=== PATIENT | female | born 1995 | race Caucasian/White ===

== ENCOUNTER 2016-10-25 21:06 | Emergency (ER) | payer OTHER ==
[2016-10-25] MEDS ORDERED: SODIUM CHLORIDE 0.9% 1000ML 1,000 ML ONE (21:15)
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
--- NOTE | 2016-10-25 21:38 | RAD ---
EXAM DESCRIPTION: Ankle,Right 3 Views CLINICAL HISTORY: pain COMPARISON: None FINDINGS: AP, lateral and oblique views of the right ankle were submitted. There is no discrete acute fracture or dislocation. The ankle mortise is intact in these non stress views. Bone mineralization is within normal limits. There is no radiopaque foreign body material IMPRESSION: No acute fracture or dislocation. Electronically signed by: Sami Gabriel MD 10/25/2016 9:37 PM CDT
[2016-10-25 21:45] VITALS: TEMP 98.6; O2SAT 98
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
[2016-10-25] MEDS: NEOMYCIN-BACITRACIN-POLYMYXIN 0.9 GM UD TOP ONE (22:00)
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
[2016-10-25] MEDS ORDERED: CHLORHEXIDINE GLUCONATE 4 % 15 ML UD TOP ONE (22:50)
[2016-10-25] MEDS ORDERED: NEOMYCIN-BACITRACIN-POLYMYXIN 0.9 GM UD TOP ONE ×2 (22:55→22:59)
[2016-10-25] MEDS ORDERED: LIDOCAINE 1% W/ EPINEPHRINE 20 ML VIAL INJ ONE (23:27)
[2016-10-26] MEDS ORDERED: ceFAZolin SODIUM 1 GM in SODIUM CHL 0.9% 50ML MIN-BAG+ 50 ML IVPB ONE ×2
[2016-10-26] MEDS ORDERED: ceFAZolin SODIUM 1 GM VIAL ONE (00:15)
[2016-10-26] MEDS ORDERED: ceFAZolin SODIUM 1 GM VIAL IM ONE (00:16)
[2016-10-26 01:19] VITALS: BP 134/86
[2016-10-26] MEDS ORDERED: NEOMYCIN-BACITRACIN-POLYMYXIN 0.9 GM UD TOP ONE (04:20)
[2016-10-26] MEDS ORDERED: CHLORHEXIDINE GLUCONATE 4 % 15 ML UD TOP ONE (05:15)
== END 2016-10-26 00:16 | disposition short-term general hospital (02) ==
LOC: ER 21:06
DX: S01.01XA Laceration without foreign body of scalp, initial encounter (principal); S42.115A Nondisplaced fracture of body of scapula, left shoulder, initial encounter for closed fracture; F41.9 Anxiety disorder, unspecified; Z88.2 Allergy status to sulfonamides; V86.59XA Driver of other special all-terrain or other off-road motor vehicle injured in nontraffic accident, initial encounter; Y92.9 Unspecified place or not applicable
CPT/HCPCS: 36415; 70450; 71250; 72125; 73030; 73610; 74176; 80053; 80307; 80320; 81001; 84703; 85025; J0690